=== PATIENT | female | born 1995 | race Caucasian/White ===

== ENCOUNTER 2017-09-04 02:38 | Emergency (ER) | payer OTHER ==
[~2017-09-04] VITALS: Ht 162.6 cm; Wt 63.5 kg
[~2017-09-04 02:38] MED LIST: BCP; BIRTH CONTROL; Colace100 MG PO; HYDACE5 PO; IBUP600 PO; KETO10 PO; MELA3; MELA3 PO; Norco 5-325 Ta1 EACH PO; RXCODACET PO; Robaxin-750750 MG PO; Robaxin500 MG PO; Valium2 MG PO; Zofran Odt4 MG SL; Zofran Odt8 MG SL
[2017-09-04] MEDS ORDERED: Norco 5-325 Ta1 EACH PO (03:58)
[2017-09-04] MEDS ORDERED: IBUP600 PO (03:58)
== END 2017-09-04 04:17 | disposition home or self-care (01) ==
LOC: ER 02:38
DX: S62.316A Displaced fracture of base of fifth metacarpal bone, right hand, initial encounter for closed fracture (principal); Z91.02 Food additives allergy status; Y04.2XXA Assault by strike against or bumped into by another person, initial encounter
CPT/HCPCS: 29125; 73130; 99283

== ENCOUNTER 2017-12-26 17:44 | Emergency (ER) | payer OTHER ==
[~2017-12-26] VITALS: Ht 165.1 cm; Wt 63.5 kg
== END 2017-12-26 18:18 | disposition home or self-care (01) ==
LOC: ER 17:44
DX: S70.362A Insect bite (nonvenomous), left thigh, initial encounter (principal); Z91.02 Food additives allergy status; W57.XXXA Bitten or stung by nonvenomous insect and other nonvenomous arthropods, initial encounter

== ENCOUNTER → 2018-02-08 | Outpatient (CLI) | payer OTHER | END | disposition home or self-care (01) | LOC: LAB SHORT 13:56 → LAB EV 13:56 | DX: R35.0 Frequency of micturition (principal) | CPT/HCPCS: 87077; 87086; 87186 ==

== ENCOUNTER → 2019-07-12 | Outpatient (CLI) | payer SELFPAY | END | disposition home or self-care (01) | LOC: LAB 19:40 → LAB SHORT 19:40 | DX: R30.0 Dysuria (principal) | CPT/HCPCS: 87077; 87086; 87186 ==

== ENCOUNTER → 2020-01-18 | Outpatient (CLI) | payer BC ==
[2020-01-21 12:08] LABS: CHLAMYDIA TRACHOMATIS, NAA Negative (Negative); NEISSERIA GONORRHOEAE, NAA Negative (Negative)
== END | disposition home or self-care (01) ==
LOC: LAB SHORT 13:52 → LAB 13:52
PROVIDERS: Obstetrics & Gynecology
DX: Z34.01 Encounter for supervision of normal first pregnancy, first trimester (principal)
CPT/HCPCS: 87491; 87591

== ENCOUNTER → 2020-03-21 | Outpatient (CLI) | payer BC | END | disposition home or self-care (01) | LOC: LAB SHORT 10:33 → LAB 10:33 | DX: R30.0 Dysuria (principal) | CPT/HCPCS: 87077; 87086; 87186 ==

== ENCOUNTER 2020-08-31 19:43 | Inpatient (IN) | payer BC, OTHER ==
[~2020-08-31] VITALS: Ht 167.6 cm; Wt 85.9 kg
[2020-08-31 20:20] LABS: BASOPHILS ABSOLUTE AUTO 0.03 K/mm3 (0.00-0.23); BASOPHILS PERCENT AUTO 0 % (0-2); EOSINOPHILS ABSOLUTE AUTO 0.04 K/mm3 (0.00-0.68); EOSINOPHILS PERCENT AUTO 0 % (0-6); Hematocrit 37.5 % (33.0-51.0); Hemoglobin 13.1 g/dL (11.5-16.0); IMMATURE GRAN ABSOLUTE AUTO 0.11 K/mm3 (0.00-0.10); IMMATURE GRAN PERCENT AUTO 1 % (0-1); LYMPHOCYTES ABSOLUTE AUTO 1.85 K/mm3 (0.84-5.20); LYMPHOCYTES PERCENT AUTO 12 % (21-46); MONOCYTES ABSOLUTE AUTO 0.55 K/mm3 (0.16-1.47); MONOCYTES PERCENT AUTO 4 % (4-13); Mean Corpuscular HGB 29.6 pg (26.0-34.0); Mean Corpuscular HGB Conc 34.9 g/dL (31.5-36.5); Mean Corpuscular Volume 85 fL (80-100); Mean Platelet Volume 12.2 fL (9.1-12.4); NEUTROPHILS ABSOLUTE AUTO 12.57 K/mm3 (1.96-9.15); NEUTROPHILS PERCENT AUTO 83 % (41-73); Platelet Count 282 K/mm3 (150-400); RDW Coefficient Variation 13.6 % (11.7-14.2); RDW Standard Deviation 41.9 fL (35.1-46.3); Red Blood Cell Count 4.42 M/mm3 (3.80-5.20); White Blood Cell Count 15.15 K/mm3 (4.00-11.30)
[2020-08-31] MEDS ORDERED: LABE100 PO (20:32)
[2020-08-31] MEDS ORDERED: PRENATAL TABLE1 EAC2 PO (20:33)
[2020-09-02 05:58] LABS: BASOPHILS ABSOLUTE AUTO 0.05 K/mm3 (0.00-0.23); BASOPHILS PERCENT AUTO 0 % (0-2); EOSINOPHILS ABSOLUTE AUTO 0.18 K/mm3 (0.00-0.68); EOSINOPHILS PERCENT AUTO 1 % (0-6); Hematocrit 35.1 % (33.0-51.0); Hemoglobin 11.8 g/dL (11.5-16.0); IMMATURE GRAN ABSOLUTE AUTO 0.09 K/mm3 (0.00-0.10); IMMATURE GRAN PERCENT AUTO 1 % (0-1); LYMPHOCYTES ABSOLUTE AUTO 3.27 K/mm3 (0.84-5.20); LYMPHOCYTES PERCENT AUTO 20 % (21-46); MONOCYTES ABSOLUTE AUTO 0.97 K/mm3 (0.16-1.47); MONOCYTES PERCENT AUTO 6 % (4-13); Mean Corpuscular HGB 29.4 pg (26.0-34.0); Mean Corpuscular HGB Conc 33.6 g/dL (31.5-36.5); Mean Corpuscular Volume 88 fL (80-100); Mean Platelet Volume 12.5 fL (9.1-12.4); NEUTROPHILS ABSOLUTE AUTO 11.92 K/mm3 (1.96-9.15); NEUTROPHILS PERCENT AUTO 72 % (41-73); Platelet Count 219 K/mm3 (150-400); RDW Coefficient Variation 13.7 % (11.7-14.2); RDW Standard Deviation 43.4 fL (35.1-46.3); Red Blood Cell Count 4.01 M/mm3 (3.80-5.20); White Blood Cell Count 16.48 K/mm3 (4.00-11.30)
--- NOTE | 2020-09-02 16:51 | NUR ---
09/02/20 1600 pt trying to rest in bed, tearful. Encouraged her to try to get some rest while baby is sleeping yet she says that she is unable to rest fully because the baby has been spitty earlier and she is afraid that will happen while she is asleep. Offered to take baby to nursery while she sleeps, pt declines at this time
--- NOTE | 2020-09-02 21:54 | NUR ---
ASSUMED CARE ASSUMED CARE OF PT AT 2129. PT STABLE AND DENIES NEEDS AT THIS TIME.
[2020-09-03] MEDS ORDERED: DOCU100 PO (09:59)
[2020-09-03] MEDS ORDERED: IBUP800 PO (10:00)
[2020-09-03] MEDS ORDERED: Percocet 5-3251 EACH PO (10:00)
== END 2020-09-03 12:25 | disposition home or self-care (01) | DRG 807 ==
LOC: OBS 19:43 → BC 19:44 → OBS 19:58 → BC 19:59
PROVIDERS: ADMIT Nurse Practitioner Obstetrics & Gynecology
PROC: 10E0XZZ Delivery of Products of Conception, External Approach (ICD-10-PCS; principal; 2020-09-01)
PROC: 10907ZC Drainage of Amniotic Fluid, Therapeutic from Products of Conception, Via Natural or Artificial Opening (ICD-10-PCS; 2020-09-01)
PROC: 3E033VJ Introduction of Other Hormone into Peripheral Vein, Percutaneous Approach (ICD-10-PCS; 2020-09-01)
PROC: 0UQMXZZ Repair Vulva, External Approach (ICD-10-PCS; 2020-09-01)
PROC: 0HQ9XZZ Repair Perineum Skin, External Approach (ICD-10-PCS; 2020-09-01)
PROC: 3E0R3BZ Introduction of Anesthetic Agent into Spinal Canal, Percutaneous Approach (ICD-10-PCS; 2020-09-01)
PROC: 00HU33Z Insertion of Infusion Device into Spinal Canal, Percutaneous Approach (ICD-10-PCS; 2020-09-01)
DX: O14.04 Mild to moderate pre-eclampsia, complicating childbirth (principal); Z37.0 Single live birth; Z3A.37 37 weeks gestation of pregnancy; O69.1XX0 Labor and delivery complicated by cord around neck, with compression, not applicable or unspecified; O70.0 First degree perineal laceration during delivery; Z88.1 Allergy status to other antibiotic agents; Z91.011 Allergy to milk products; Z91.048 Other nonmedicinal substance allergy status
CPT/HCPCS: 0241U; 36415; 51702; 85025; 86850; 86900; 86901; A9270; J1885; J2001; J2210; J2405; J2590; J3010; J7120

== ENCOUNTER 2022-08-12 16:58 | Inpatient (IN) | payer BC, OTHER ==
[~2022-08-12] VITALS: Ht 165.1 cm; Wt 81.8 kg
[~2022-08-12 16:58] MED LIST changes: +DOCU100 PO; +IBUP800 PO; +LABE100 PO; +PRENATAL TABLE1 EAC2 PO; +Percocet 5-3251 EACH PO
[2022-08-12] MEDS ORDERED: ASPI81CH PO (17:49)
[2022-08-12] MEDS ORDERED: FAMO10 PO (17:50)
[2022-08-12 18:26] LABS: BASOPHILS ABSOLUTE AUTO 0.03 K/mm3 (0.00-0.23); BASOPHILS PERCENT AUTO 0 % (0-2); EOSINOPHILS ABSOLUTE AUTO 0.13 K/mm3 (0.00-0.68); EOSINOPHILS PERCENT AUTO 1 % (0-6); Hematocrit 36.3 % (33.0-51.0); Hemoglobin 12.8 g/dL (11.5-16.0); IMMATURE GRAN ABSOLUTE AUTO 0.07 K/mm3 (0.00-0.10); IMMATURE GRAN PERCENT AUTO 1 % (0-1); LYMPHOCYTES ABSOLUTE AUTO 2.69 K/mm3 (0.84-5.20); LYMPHOCYTES PERCENT AUTO 18 % (21-46); MONOCYTES ABSOLUTE AUTO 0.69 K/mm3 (0.16-1.47); MONOCYTES PERCENT AUTO 5 % (4-13); Mean Corpuscular HGB 29.6 pg (26.0-34.0); Mean Corpuscular HGB Conc 35.3 g/dL (31.5-36.5); Mean Corpuscular Volume 84 fL (80-100); Mean Platelet Volume 11.9 fL (9.1-12.4); NEUTROPHILS ABSOLUTE AUTO 11.63 K/mm3 (1.96-9.15); NEUTROPHILS PERCENT AUTO 76 % (41-73); Platelet Count 271 K/mm3 (150-400); RDW Coefficient Variation 12.6 % (11.7-14.2); RDW Standard Deviation 38.3 fL (35.1-46.3); Red Blood Cell Count 4.33 M/mm3 (3.80-5.20); White Blood Cell Count 15.24 K/mm3 (4.00-11.30)
[2022-08-12 18:32] LABS: Albumin/Globulin Ratio 0.7 (0.8-1.8); Bilirubin, Total 0.4 mg/dL (0.1-1.0); Bun/Creatinine Ratio 26.6 (12.0-20.0); Calcium, Blood 9.3 mg/dL (8.5-10.1); Creatinine, Blood 0.6 mg/dL (0.40-1.00); Globulin, Blood 4.2 g/dL (2.2-4.0); Total Protein, Blood 7.2 g/dL (6.4-8.2)
--- NOTE | 2022-08-13 14:15 | NUR ---
RECEIVED CALL FROM PHARMACY [facility] HAS RED DYE IN IT. 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
[2022-08-14 06:28] LABS: Hematocrit 34.6 % (33.0-51.0); Mean Corpuscular HGB 29.6 pg (26.0-34.0); Mean Corpuscular HGB Conc 34.7 g/dL (31.5-36.5); Mean Corpuscular Volume 85 fL (80-100); Mean Platelet Volume 11.5 fL (9.1-12.4); Platelet Count 254 K/mm3 (150-400); RDW Coefficient Variation 12.9 % (11.7-14.2); RDW Standard Deviation 40.1 fL (35.1-46.3); Red Blood Cell Count 4.06 M/mm3 (3.80-5.20); White Blood Cell Count 15.12 K/mm3 (4.00-11.30)
--- NOTE | 2022-08-14 07:45 | NUR ---
PT UP IN SHOWER DENIES NEEDING ASSISTANCE OR PAIN MEDICATION, PT DOING SELF CARE
--- NOTE | 2022-08-14 09:04 | NUR ---
P/C TO Ruth ELLIS CNM, ORDER RECEIVED TO CALL IN RX IBUPROFEN 800MG PO Q8 PRN PAIN/CRAMPING #50, NO REFILLS., RX CALLED INTO [facility]
[2022-08-14] MEDS ORDERED: IBUP800 PO (09:21)
--- NOTE | 2022-08-14 12:24 | NUR ---
DISCHARGE INSTRUCTIONS REVIEWED, NO QUESTIONS AT THIS TIME, NB BABY BANDS MATCHED, PT TO RETURN MON FOR PPFU APPT
--- NOTE | 2022-08-14 13:04 | NUR ---
DISCHARGE TO HOME WITH NB
[2022-08-14] MEDS ORDERED: Floxin10 ML BOTHEYES (23:19)
[2022-08-14] MEDS ORDERED: Amoxicillin875 MG PO (23:19)
== END 2022-08-14 13:00 | disposition home or self-care (01) | DRG 807 ==
LOC: OBS 16:58 → BC 17:08
PROVIDERS: ADMIT Advanced Practice Midwife
PROC: 10E0XZZ Delivery of Products of Conception, External Approach (ICD-10-PCS; principal; 2022-08-13)
PROC: 3E0R3BZ Introduction of Anesthetic Agent into Spinal Canal, Percutaneous Approach (ICD-10-PCS; 2022-08-13)
PROC: 00HU33Z Insertion of Infusion Device into Spinal Canal, Percutaneous Approach (ICD-10-PCS; 2022-08-13)
PROC: 10907ZC Drainage of Amniotic Fluid, Therapeutic from Products of Conception, Via Natural or Artificial Opening (ICD-10-PCS; 2022-08-13)
DX: O14.04 Mild to moderate pre-eclampsia, complicating childbirth (principal); Z37.0 Single live birth; O69.1XX0 Labor and delivery complicated by cord around neck, with compression, not applicable or unspecified; Z3A.37 37 weeks gestation of pregnancy
CPT/HCPCS: 36415; 51701; 80053; 81003; 85025; 85027; 86850; 86900; 86901; A9270; J1885; J2590; J3010; J7120

== ENCOUNTER 2022-08-14 22:28 | Emergency (ER) | payer BC, OTHER ==
[~2022-08-14] VITALS: Ht 165.1 cm; Wt 72.6 kg
[~2022-08-14 22:28] MED LIST changes: +ASPI81CH PO; +FAMO10 PO
[2022-08-14] MEDS ORDERED: Amoxicillin875 MG PO (23:19)
[2022-08-14] MEDS ORDERED: Floxin10 ML BOTHEYES (23:19)
== END 2022-08-14 23:24 | disposition home or self-care (01) ==
LOC: ER 22:28
DX: H10.9 Unspecified conjunctivitis (principal); L03.213 Periorbital cellulitis; Z88.1 Allergy status to other antibiotic agents; Z91.040 Latex allergy status; Z91.048 Other nonmedicinal substance allergy status; Z79.899 Other long term (current) drug therapy
CPT/HCPCS: A9270

== ENCOUNTER 2024-01-05 07:00 | Inpatient (IN) | payer OTHER ==
[~2024-01-05] VITALS: Ht 167.6 cm; Wt 90.5 kg
[2024-01-05] VITALS (35 sets, daily range): BP systolic 118–153; BP diastolic 56–94
[~2024-01-05 07:00] MED LIST changes: +Amoxicillin875 MG PO; +Floxin10 ML BOTHEYES
[2024-01-05] MEDS ORDERED: Misoprostol 200 MCG Tab PR PRN (07:10)
[2024-01-05] MEDS ORDERED: Oxytocin 10 Unit / ML Vial IM PRN (07:10)
[2024-01-05] MEDS ORDERED: Methylergonovine Maleate 0.2MG / ML 1ML Amp IM PRN ×2 (07:10→16:25)
[2024-01-05] MEDS ORDERED: Calcium Carbonate 500 MG Tab Chew PO PRN (07:10)
[2024-01-05] MEDS ORDERED: Lactated Ringer's 1,000 ML IV PRN (07:10)
[2024-01-05] MEDS ORDERED: Carboprost Tromethamine 250 MCG/ML 1ML Amp IM PRN (07:10)
[2024-01-05] MEDS ORDERED: OXYTOCIN/RINGER'S LACTATE 500 ML IV SCH ×3 (07:10→16:25)
[2024-01-05] MEDS ORDERED: Ondansetron HCl 2 MG / ML 2ML Vial IV PRN (07:10)
[2024-01-05] MEDS ORDERED: Misoprostol 200 MCG Tab XX PRN (07:10)
[2024-01-05] MEDS ORDERED: Lactated Ringer's 1,000 ML IV SCH ×4 (07:10→16:20)
[2024-01-05] MEDS ORDERED: Tranexamic Acid 100 ML IV SCH (07:10)
[2024-01-05] MEDS ORDERED: Acetaminophen 500 MG Tab PO PRN (07:10)
[2024-01-05 07:51] LABS: BASOPHILS ABSOLUTE AUTO 0.05 K/mm3 (0.00-0.23); BASOPHILS PERCENT AUTO 0 % (0-2); EOSINOPHILS ABSOLUTE AUTO 0.19 K/mm3 (0.00-0.68); EOSINOPHILS PERCENT AUTO 2 % (0-6); Hematocrit 38.8 % (33.0-51.0); Hemoglobin 13.4 g/dL (11.5-16.0); IMMATURE GRAN ABSOLUTE AUTO 0.05 K/mm3 (0.00-0.10); IMMATURE GRAN PERCENT AUTO 0 % (0-1); LYMPHOCYTES ABSOLUTE AUTO 2.98 K/mm3 (0.84-5.20); LYMPHOCYTES PERCENT AUTO 27 % (21-46); MONOCYTES ABSOLUTE AUTO 0.53 K/mm3 (0.16-1.47); MONOCYTES PERCENT AUTO 5 % (4-13); Mean Corpuscular HGB Conc 34.5 g/dL (31.5-36.5); Mean Corpuscular Volume 84 fL (80-100); Mean Platelet Volume 12.9 fL (9.1-12.4); NEUTROPHILS ABSOLUTE AUTO 7.45 K/mm3 (1.96-9.15); NEUTROPHILS PERCENT AUTO 66 % (41-73); Platelet Count 211 K/mm3 (150-400); RDW Standard Deviation 39.5 fL (35.1-46.3); Red Blood Cell Count 4.62 M/mm3 (3.80-5.20); White Blood Cell Count 11.25 K/mm3 (4.00-11.30)
[2024-01-05] MEDS ORDERED: ePHEDrine Sulfate 50 MG/ML 1ML Injection XX PRN (08:40)
[2024-01-05] MEDS ORDERED: FentaNYL 2mcg/ml-Bup 0.1% Epd 250 ML EPI PRN (08:40)
[2024-01-05] MEDS ORDERED: FentaNYL Citrate 50 MCG/ML 2 ML Injection IV PRN (08:50)
[2024-01-05] MEDS ORDERED: Lidocaine HCl 2% 10 ML SDA ONE (13:54)
[2024-01-05] MEDS ORDERED: Ibuprofen 400 MG Tab PO PRN (16:20)
[2024-01-05] MEDS ORDERED: Lanolin Cream TOP PRN (16:20)
[2024-01-05] MEDS ORDERED: Hydrocortisone/Pramoxine Rectal Foam 10 GM PR PRN (16:20)
[2024-01-05] MEDS ORDERED: OxyCODONE 5 mg/Acetamin 325 mg TABLET PO PRN (16:20)
[2024-01-05] MEDS ORDERED: Benzocaine Topical Anesthetic Spray 60GM TOP PRN (16:20)
[2024-01-05] MEDS ORDERED: Diphth,Pertuss(Acell),Tet Vac 0.5 ML VIAL IM PRN (16:20)
[2024-01-05] MEDS ORDERED: Witch Hazel/Glycerin PADS TOP PRN (16:25)
[2024-01-05] MEDS ORDERED: Docusate Sodium 100 MG Cap PO PRN (16:25)
[2024-01-05] MEDS ORDERED: Misoprostol 100 MCG Tab PO PRN (16:25)
[2024-01-05] MEDS ORDERED: Ketorolac Tromethamine 30mg Vial IV ONE (17:00)
[2024-01-05] MEDS ORDERED: Ketorolac Tromethamine 30mg Vial IV PRN (23:00)
[2024-01-06 04:09] VITALS: BP 144/86
[2024-01-06] MEDS ORDERED: Prenatal Vit/FE Fumarate/FA 1 Tab PO SCH (09:00)
[2024-01-06 09:12] VITALS: BP 133/83
[2024-01-06 13:02] VITALS: BP 150/62
[2024-01-06] MEDS ORDERED: MOTRIN IB200 MG PO (15:55)
[2024-01-06 17:02] VITALS: BP 138/78
--- NOTE | 2024-01-06 17:15 | NUR ---
DISCHARGE TEACHING COMPLETED WITH PT, VERBALIZES UNDERSTANDING AND HAS NO FURTHER QUESTIONS OR CONCERNS AT THIS TIME
== END 2024-01-06 18:05 | disposition home or self-care (01) | DRG 807 ==
LOC: OBS 07:00 → BC 07:02 → OBS 07:22 → BC 07:25
PROVIDERS: ADMIT Advanced Practice Midwife
PROC: 10E0XZZ Delivery of Products of Conception, External Approach (ICD-10-PCS; principal; 2024-01-05)
PROC: 10907ZC Drainage of Amniotic Fluid, Therapeutic from Products of Conception, Via Natural or Artificial Opening (ICD-10-PCS; 2024-01-05)
PROC: 3E0R3BZ Introduction of Anesthetic Agent into Spinal Canal, Percutaneous Approach (ICD-10-PCS; 2024-01-05)
PROC: 00HU33Z Insertion of Infusion Device into Spinal Canal, Percutaneous Approach (ICD-10-PCS; 2024-01-05)
DX: O10.92 Unspecified pre-existing hypertension complicating childbirth (principal); Z37.0 Single live birth; Z3A.38 38 weeks gestation of pregnancy
CPT/HCPCS: 36415; 51702; 85025; 86850; 86900; 86901; 86923; A9270; J1885; J2001; J2405; J2590; J7120